=== PATIENT | male | born 1965 | race Caucasian/White ===

== ENCOUNTER 2022-05-01 17:02 | Inpatient (IN) | payer SELFPAY ==
[2022-05-01 17:38] LABS: #Basophils 0.1 thou/uL (0.0-0.2); #Eosinphils 0.1 thou/uL (0.0-0.7); #Lymphocytes 3.4 thou/uL (1.20-3.40); #Monocytes 0.5 thou/uL (0.11-0.59); #Neutrophils 6.1 thou/uL (1.40-6.50); %Basophils 0.7 % (0.0-1.0); %Eosinophils 0.7 % (0.0-10.0); %Lymphocytes 33.5 % (21.0-51.0); %Monocytes 4.6 % (0.0-10.0); %Neutrophils 60.5 % (42.0-75.0); Hemoglobin 15.7 g/dL (14.0-18.0); Mean Corpuscular HGB CONC 33.2 g/dL (32.0-36.0); Mean Corpuscular Hemoglobin 30.9 pg (27.0-31.0); Mean Corpuscular Volume 93.1 fl (78.0-98.0); Mean Platelet Volume 7.1 fL (7.4-10.4); Platelet Count 320 thou/uL (130-400); RBC Distribution Width 11.9 % (11.5-14.5); Red Blood Cell (RBC) Count 5.08 mill/uL (4.70-6.10); White Blood Cell (WBC) Count 10.1 thou/uL (4.8-10.8)
[2022-05-01 17:54] LABS: ALT (SGPT) 11 U/L (8-55); AST (SGOT) 20 U/L (5-34); Albumin 4.5 g/dL (3.5-5.0); Alkaline Phosphatase 61 U/L (40-110); Anion Gap 17 mmol/L (10-20); BUN (Urea Nitrogen) 18 mg/dL (8.4-25.7); Bilirubin, Total 0.7 mg/dL (0.2-1.2); Calc. Creatinine Clearance 0 mL/min (70-130); Calcium 9.6 mg/dL (7.8-10.44); Carbon Dioxide 22 mmol/L (22-29); Chloride 104 mmol/L (98-107); Estimated GFR 82; Globulin 2.9 g/dL (2.4-3.5); Glucose 80 mg/dL (70-105); Potassium 4.3 mmol/L (3.5-5.1); Protein, Total 7.4 g/dL (6.0-8.3); Sodium 139 mmol/L (136-145)
[2022-05-01] MEDS ORDERED: Enoxaparin Sodium 80 MG/0.8 ML SYRINGE ONE (18:11)
[2022-05-01 18:32] LABS: CKMB 7.1 ng/mL (0-6.6)
[2022-05-01] MEDS ORDERED: Acetaminophen 325 MG TAB PO PRN (18:45)
[2022-05-01] MEDS ORDERED: Senokot S 8.6-50 MG TAB PO PRN (18:45)
[2022-05-01] MEDS ORDERED: Nitroglycerin 0.4 MG TAB (25 Tab Bottle) SL PRN (18:49)
[2022-05-01] MEDS ORDERED: Aspirin 325 MG TAB PO SCH (19:00)
[2022-05-01] MEDS ORDERED: Aspirin Chewable 81 MG TAB ONE (19:36)
[2022-05-01 21:09] LABS: Troponin I 2.735 ng/mL (< 0.028)
[2022-05-01 21:25] VITALS: BMI 23.6
[2022-05-01] MEDS: Sodium Chloride 0.9% 1,000 ML IV SCH (21:44)
[2022-05-01] MEDS: Metoprolol Tartrate 25 MG TAB PO SCH (21:44)
[2022-05-01] MEDS: Atorvastatin Calcium 40 MG TAB PO SCH (21:44)
[2022-05-01] MEDS: Famotidine 20 MG TAB PO SCH (21:44)
[2022-05-01 23:58] LABS: Critical Call Chem Troponin I RESULT DECREASING; Troponin I 2.443 ng/mL (< 0.028)
[2022-05-02 05:23] LABS: #Basophils 0.1 thou/uL (0.0-0.2); #Eosinphils 0.2 thou/uL (0.0-0.7); #Lymphocytes 2.6 thou/uL (1.20-3.40); #Monocytes 0.5 thou/uL (0.11-0.59); #Neutrophils 5.2 thou/uL (1.40-6.50); %Basophils 1.2 % (0.0-1.0); %Eosinophils 2.3 % (0.0-10.0); %Lymphocytes 30.2 % (21.0-51.0); %Monocytes 5.3 % (0.0-10.0); Hemoglobin 14.5 g/dL (14.0-18.0); Mean Corpuscular HGB CONC 33.8 g/dL (32.0-36.0); Mean Corpuscular Hemoglobin 31.7 pg (27.0-31.0); Mean Platelet Volume 7.1 fL (7.4-10.4); Platelet Count 269 thou/uL (130-400); RBC Distribution Width 11.8 % (11.5-14.5); Red Blood Cell (RBC) Count 4.57 mill/uL (4.70-6.10); White Blood Cell (WBC) Count 8.6 thou/uL (4.8-10.8)
[2022-05-02 05:36] LABS: ALT (SGPT) 10 U/L (8-55); AST (SGOT) 19 U/L (5-34); Albumin 3.9 g/dL (3.5-5.0); Alkaline Phosphatase 52 U/L (40-110); Anion Gap 12 mmol/L (10-20); BUN (Urea Nitrogen) 20 mg/dL (8.4-25.7); Bilirubin, Total 0.7 mg/dL (0.2-1.2); Calc. Creatinine Clearance 100 mL/min (70-130); Calcium 8.8 mg/dL (7.8-10.44); Carbon Dioxide 24 mmol/L (22-29); Cardiac Risk 4.9 (Less than 4.5); Chloride 107 mmol/L (98-107); Cholesterol 181 mg/dl (< 200 Desired); Estimated GFR 98; Globulin 2.3 g/dL (2.4-3.5); Glucose 96 mg/dL (70-105); HDL Cholesterol 37 mg/dL (>60 Neg Risk); LDL Cholesterol, Calculated 125 mg/dL; Potassium 4.1 mmol/L (3.5-5.1); Protein, Total 6.2 g/dL (6.0-8.3); Sodium 139 mmol/L (136-145); Triglycerides 97 mg/dL (Less than 150)
[2022-05-02] MEDS: Metoprolol Tartrate 25 MG TAB PO SCH ×2 (08:36→20:10)
[2022-05-02] MEDS: Famotidine 20 MG TAB PO SCH ×2 (08:37→20:10)
[2022-05-02] MEDS ORDERED: Aspirin 300 MG Suppository PR SCH (09:00)
[2022-05-02] MEDS ORDERED: Enoxaparin Sodium 80 MG/0.8 ML SYRINGE SC SCH (09:00)
[2022-05-02] MEDS ORDERED: Aspirin 325 MG TAB PO SCH (11:15)
[2022-05-02] MEDS ORDERED: Communication Order-Pharmacy FS SCH ×2 (11:30→17:41)
[2022-05-02] MEDS ORDERED: Sodium Chloride 0.9% 1,000 ML IV SCH ×2 (11:30→13:29)
[2022-05-02] MEDS ORDERED: Lidocaine 1% (PF) 30 ML VIAL ONE (11:51)
[2022-05-02] MEDS ORDERED: Heparin 10,000 UNITS/ 10 ML VIAL ONE (11:51)
[2022-05-02] MEDS ORDERED: Midazolam HCl 2 mg/2 ml Vial ONE (12:35)
[2022-05-02] MEDS ORDERED: Fentanyl 100 MCG/2 ML VIAL ONE (12:35)
[2022-05-02] MEDS ORDERED: Protamine Sulfate 50 MG/5 ML VIAL ONE (13:02)
[2022-05-02] MEDS ORDERED: Nitroglycerin 0.4 MG TAB (25 Tab Bottle) SL PRN (13:28)
[2022-05-02] MEDS ORDERED: Sodium Chloride 0.9% 200 ML IV PRN (13:28)
[2022-05-02] MEDS ORDERED: Acetaminophen/Codeine 30-300mg Tablet PO PRN ×2 (13:28)
[2022-05-02] MEDS: Sodium Chloride 0.9% 1,000 ML IV SCH (14:46)
[2022-05-02] MEDS ORDERED: Nicotine 21 MG PATCH TD SCH (17:45)
[2022-05-02] MEDS: Budesonide 0.5 MG/2 ML NEB NEB SCH (18:44)
[2022-05-02] MEDS: DULoxetine 30 MG CAP PO SCH (20:10)
[2022-05-02] MEDS: Pregabalin 75 MG CAP PO SCH (20:10)
[2022-05-02] MEDS: Cyclobenzaprine 10 MG TAB PO SCH (20:10)
[2022-05-02] MEDS: Atorvastatin Calcium 40 MG TAB PO SCH (20:10)
[2022-05-03] MEDS: Budesonide 0.5 MG/2 ML NEB NEB SCH ×2 (08:12→18:37)
[2022-05-03] MEDS: Metoprolol Tartrate 25 MG TAB PO SCH ×2 (08:56→21:36)
[2022-05-03] MEDS: Pregabalin 75 MG CAP PO SCH ×2 (08:56→21:38)
[2022-05-03] MEDS: DULoxetine 30 MG CAP PO SCH ×2 (08:57→21:38)
[2022-05-03] MEDS: Famotidine 20 MG TAB PO SCH ×2 (08:57→21:38)
[2022-05-03] MEDS ORDERED: Non-Formulary Item 1 EACH (Tiotropium [Spiriva Handihaler] 18 MCG Box) INH SCH (09:00)
[2022-05-03] MEDS ORDERED: Nicotine 21 MG PATCH TD SCH ×2 (09:00→22:00)
[2022-05-03] MEDS ORDERED: Aspirin 325 MG TAB PO SCH (09:00)
[2022-05-03] MEDS: Nitroglycerin 2% Ointment 1 INCH/1 GM Packet TOP SCH ×2 (11:22→17:52)
[2022-05-03] MEDS: Cyclobenzaprine 10 MG TAB PO SCH (21:37)
[2022-05-03] MEDS: Atorvastatin Calcium 40 MG TAB PO SCH (21:37)
[2022-05-04] MEDS: Nitroglycerin 2% Ointment 1 INCH/1 GM Packet TOP SCH ×3 (00:29→07:34)
[2022-05-04] MEDS: Metoprolol Tartrate 25 MG TAB PO SCH (06:04)
[2022-05-04] MEDS ORDERED: Morphine 2 MG/ML VIAL SLOW IVP PRN ×2 (07:40→13:48)
[2022-05-04] MEDS ORDERED: Morphine 4 MG/ML VIAL SLOW IVP PRN (07:44)
[2022-05-04] MEDS: Budesonide 0.5 MG/2 ML NEB NEB SCH ×2 (07:48→18:56)
[2022-05-04] MEDS ORDERED: Albumin 5% 250 ML ONE ×2 (09:27)
[2022-05-04] MEDS ORDERED: Midazolam HCl 5 mg/5 ml Vial ONE (09:27)
[2022-05-04] MEDS ORDERED: fentaNYL PF 100 MCG/2 ML SYRINGE ONE ×2 (09:27→13:16)
[2022-05-04] MEDS ORDERED: Bupivacaine HCl 0.5%/Epinephrine 1:200,000/PF 30 ml Vial ONE (09:28)
[2022-05-04] MEDS ORDERED: Lidocaine 1% MPF 2 ML VIAL ONE (09:41)
[2022-05-04] MEDS ORDERED: Heparin 10,000 UNITS/1 ML VIAL 30,000 UNITS in Sodium Chloride 0.9% 1,000 ML FS SCH (09:45)
[2022-05-04] MEDS ORDERED: Thrombin 5000 UNITS/5 ML VIAL ONE ×2 (09:48→10:25)
[2022-05-04] MEDS ORDERED: Sodium Chloride 0.9% 100 ML ONE (10:14)
[2022-05-04] MEDS ORDERED: CEFAZOLIN 2 GM VIAL ONE (10:14)
[2022-05-04] MEDS ORDERED: Aminocaproic Acid 5 GM/20 ML VIAL ONE (10:25)
[2022-05-04] MEDS ORDERED: Ondansetron PF 4 MG/2 ML Vial ONE ×2 (10:25)
[2022-05-04] MEDS ORDERED: Rocuronium Bromide 10 MG/ML (10ML VIAL) ONE (10:25)
[2022-05-04] MEDS ORDERED: Heparin 5,000 UNITS/ML VIAL ONE (10:25)
[2022-05-04] MEDS ORDERED: Potassium Chloride 60 MEQ/30 ML VIAL ONE (10:25)
[2022-05-04] MEDS ORDERED: Mannitol 12.5 GM/50 ML ONE (10:25)
[2022-05-04] MEDS ORDERED: ePHEDrine 50 MG/ML VIAL ONE (10:25)
[2022-05-04] MEDS ORDERED: Glycopyrrolate 0.2 MG/ML 5 ML SYRINGE ONE (10:25)
[2022-05-04] MEDS ORDERED: PROPOFOL 200 MG/20 ML VIAL ONE (10:25)
[2022-05-04] MEDS ORDERED: Calcium Chloride 1 GM/10 ML Abboject SYRINGE ONE (10:25)
[2022-05-04] MEDS ORDERED: Norepinephrine 4 MG/4 ML VIAL ONE (10:25)
[2022-05-04] MEDS ORDERED: PHENYLEPHRINE-NS 100 MCG/ML 10 ML SYRINGE ONE (10:25)
[2022-05-04] MEDS ORDERED: Cardioplegic Soln 1,000 ML BAG ONE (10:25)
[2022-05-04] MEDS ORDERED: Sodium Bicarb 50 MEQ/50 ML Abboject 8.4% SYRINGE ONE (10:25)
[2022-05-04] MEDS ORDERED: Heparin 30,000 units/30 ml VIAL ONE (10:25)
[2022-05-04] MEDS ORDERED: Lidocaine 2% PF 100 mg/5 ml Syringe ONE (10:25)
[2022-05-04] MEDS ORDERED: Papaverine 60 MG/2 ML VIAL ONE (10:25)
[2022-05-04] MEDS ORDERED: Protamine Sulfate 250 MG/25 ML VIAL ONE (10:25)
[2022-05-04] MEDS ORDERED: Magnesium Sulfate 1 GM/2 ML VIAL ONE (10:25)
[2022-05-04] MEDS ORDERED: Vecuronium 10 MG VIAL ONE (10:25)
[2022-05-04] MEDS ORDERED: CEFAZOLIN 2 GM in Sodium Chloride 0.9% 100 ML IVPB SCH (10:30)
[2022-05-04] MEDS ORDERED: Dexamethasone 4 mg/ml Vial ONE (12:20)
[2022-05-04] MEDS ORDERED: Rocuronium Bromide 50 MG/5 ML VIAL ONE (13:15)
[2022-05-04] MEDS ORDERED: Hetastarch 6% 500 ML 500 ML IVPB PRN (13:48)
[2022-05-04] MEDS ORDERED: hydrALAZINE 20 MG/ML VIAL SLOW IVP PRN (13:48)
[2022-05-04] MEDS ORDERED: FENTANYL 50 MCG/ML 1 ML VIAL SLOW IVP PRN (13:48)
[2022-05-04] MEDS ORDERED: Nitroglycerin 50 MG/250 ML BOT 250 ML IVPB PRN (13:48)
[2022-05-04] MEDS ORDERED: Bisacodyl 5 MG TAB PO PRN (13:48)
[2022-05-04] MEDS ORDERED: Mag-Al 1200 mg/1200 mg/30 ML UDCUP PO PRN (13:48)
[2022-05-04] MEDS ORDERED: Magnesium 2 GM/50 ML(in water) 2 GM in Premix Bag 1 BAG IVPB SCH (13:48)
[2022-05-04] MEDS ORDERED: NOREPINEPHRINE 8 MG/250 ML-D5W 250 ML IVPB PRN (13:48)
[2022-05-04] MEDS ORDERED: Ondansetron PF 4 MG/2 ML Vial IVP PRN (13:48)
[2022-05-04] MEDS ORDERED: Potassium Chloride 20 MEQ/100 ML PREMIX BAG IVPB PRN (13:48)
[2022-05-04] MEDS ORDERED: Bisacodyl 10 MG SUPP PR PRN (13:48)
[2022-05-04] MEDS ORDERED: Guaifenesin DM 100-10/5 ML UDCUP PO PRN (13:48)
[2022-05-04] MEDS ORDERED: Promethazine HCl 25 MG/ML VIAL IM PRN (13:48)
[2022-05-04] MEDS ORDERED: Dextrose 50% Abboject 50 ML SYRINGE SLOW IVP PRN (14:00)
[2022-05-04] MEDS ORDERED: HUMULIN R 100 UNITS in Sodium Chloride 0.9% 100 ML IVPB SCH (14:00)
[2022-05-04] MEDS ORDERED: Dextrose 5% in Water 1,000 ML IV PRN (14:00)
[2022-05-04 14:02] LABS: #Eosinphils 0.2 thou/uL (0.0-0.7); #Lymphocytes 2.2 thou/uL (1.20-3.40); #Monocytes 0.3 thou/uL (0.11-0.59); #Neutrophils 7.7 thou/uL (1.40-6.50); %Basophils 0.3 % (0.0-1.0); %Eosinophils 2.2 % (0.0-10.0); %Lymphocytes 21.4 % (21.0-51.0); %Monocytes 2.4 % (0.0-10.0); %Neutrophils 73.8 % (42.0-75.0); Hemoglobin 11.2 g/dL (14.0-18.0); Mean Corpuscular HGB CONC 33.6 g/dL (32.0-36.0); Mean Corpuscular Hemoglobin 31.6 pg (27.0-31.0); Mean Corpuscular Volume 94.3 fl (78.0-98.0); Mean Platelet Volume 6.9 fL (7.4-10.4); Platelet Count 174 thou/uL (130-400); RBC Distribution Width 11.7 % (11.5-14.5); Red Blood Cell (RBC) Count 3.55 mill/uL (4.70-6.10); White Blood Cell (WBC) Count 10.4 thou/uL (4.8-10.8)
[2022-05-04 14:04] LABS: Actual Bicarbonate (HCO3a) 21.6 mEq/L (22-28); Base Excess (BEa) -4.1 mEq/L (-2.0 to +3.0); CO2 Tension 42.1 mmHg (35.0-45.0); Calcium, Ionized (arterial) 1.22 mmol/L (1.12-1.30); Carboxyhemoglobin (COHb) 0.2 gm% (0.0-3.0); Hemoglobin (Hb) 11.8 g/dL (14.0-18.0); O2 Tension (PaO2), arterial 95.6 mmHg (80.0-100.0); Potassium - ABG Lab 3.76 mmol/L (3.70-5.30); Puncture Site Arterial Line; pH, Arterial 7.33 (7.35-7.45)
[2022-05-04 14:05] LABS: ALV-art Gradient 208.275 mmHg (0-20)
[2022-05-04 14:09] LABS: INR-International Normal Ratio 1.2; PTT 32.8 sec (22.9-36.1); Prothrombin Time 15.7 sec (12.0-14.7)
[2022-05-04] MEDS: FENTANYL 50 MCG/ML 1 ML VIAL SLOW IVP PRN ×2 (14:10→15:19)
[2022-05-04] MEDS: Insulin Regular 300 UNITS/3 ML VIAL SC PRN ×2 (14:11→21:10)
[2022-05-04] MEDS: D5 1/2 NS w/20 mEq KCL 1,000 ML IV SCH (14:18)
[2022-05-04] MEDS ORDERED: Morphine 4 MG/ML VIAL ONE (14:35)
[2022-05-04] MEDS: Morphine 4 MG/ML VIAL SLOW IVP PRN (14:40)
[2022-05-04 14:44] LABS: Anion Gap 10 mmol/L (10-20); BUN (Urea Nitrogen) 15 mg/dL (8.4-25.7); Calc. Creatinine Clearance 106 mL/min (70-130); Calcium 8.6 mg/dL (7.8-10.44); Carbon Dioxide 21 mmol/L (22-29); Chloride 111 mmol/L (98-107); Estimated GFR 101; Glucose 161 mg/dL (70-105); Sodium 138 mmol/L (136-145)
[2022-05-04] MEDS: traMADol HCl 50 MG TAB PO PRN (17:03)
[2022-05-04] MEDS: CEFAZOLIN 2 GM in Sodium Chloride 0.9% 100 ML IVPB SCH (17:10)
[2022-05-04] MEDS: Ketorolac Tromethamine 30 MG/ML VIAL IVP SCH ×2 (17:13→23:32)
[2022-05-04 19:44] LABS: Hemoglobin 11.8 g/dL (14.0-18.0)
[2022-05-04 19:51] LABS: Potassium 4.5 mmol/L (3.5-5.1)
[2022-05-04] MEDS: Famotidine/PF 20 mg/2ml Vial SLOW IVP SCH (21:09)
[2022-05-04] MEDS: Atorvastatin Calcium 40 MG TAB PO SCH (21:09)
[2022-05-04] MEDS: Acetaminophen 325 MG TAB PO PRN (21:14)
[2022-05-05] MEDS: CEFAZOLIN 2 GM in Sodium Chloride 0.9% 100 ML IVPB SCH ×2 (02:07→10:22)
[2022-05-05] MEDS: Insulin Regular 300 UNITS/3 ML VIAL SC PRN (02:16)
[2022-05-05 04:06] LABS: #Lymphocytes 1.4 thou/uL (1.20-3.40); #Monocytes 0.7 thou/uL (0.11-0.59); #Neutrophils 8.4 thou/uL (1.40-6.50); %Basophils 0.3 % (0.0-1.0); %Eosinophils 0.2 % (0.0-10.0); %Lymphocytes 13.6 % (21.0-51.0); %Monocytes 6.6 % (0.0-10.0); %Neutrophils 79.3 % (42.0-75.0); Mean Corpuscular HGB CONC 32.4 g/dL (32.0-36.0); Mean Corpuscular Hemoglobin 30.5 pg (27.0-31.0); Mean Corpuscular Volume 94.2 fl (78.0-98.0); Mean Platelet Volume 7.6 fL (7.4-10.4); Platelet Count 200 thou/uL (130-400); RBC Distribution Width 11.6 % (11.5-14.5); Red Blood Cell (RBC) Count 3.61 mill/uL (4.70-6.10); White Blood Cell (WBC) Count 10.6 thou/uL (4.8-10.8)
[2022-05-05 04:28] LABS: Anion Gap 9 mmol/L (10-20); BUN (Urea Nitrogen) 12 mg/dL (8.4-25.7); Calc. Creatinine Clearance 105 mL/min (70-130); Calcium 8.7 mg/dL (7.8-10.44); Carbon Dioxide 23 mmol/L (22-29); Chloride 108 mmol/L (98-107); Estimated GFR 101; Glucose 111 mg/dL (70-105); Potassium 4.2 mmol/L (3.5-5.1); Sodium 136 mmol/L (136-145)
[2022-05-05] MEDS: Ketorolac Tromethamine 30 MG/ML VIAL IVP SCH ×4 (05:55→23:44)
[2022-05-05] MEDS: traMADol HCl 50 MG TAB PO PRN ×3 (06:22→17:21)
[2022-05-05] MEDS: Budesonide 0.5 MG/2 ML NEB NEB SCH ×2 (07:02→18:14)
[2022-05-05] MEDS: Famotidine/PF 20 mg/2ml Vial SLOW IVP SCH ×2 (08:29→20:48)
[2022-05-05] MEDS ORDERED: Magnesium 2 GM/50 ML(in water) 2 GM in Premix Bag 1 BAG IVPB SCH (09:00)
[2022-05-05] MEDS ORDERED: Aspirin 325 MG TAB PO SCH (09:00)
[2022-05-05] MEDS ORDERED: Insulin Glargine 30 UNITS/0.3 ML VIAL SC PRN (13:57)
[2022-05-05] MEDS: Morphine 4 MG/ML VIAL SLOW IVP PRN (16:19)
[2022-05-05] MEDS: D5 1/2 NS w/20 mEq KCL 1,000 ML IV SCH (16:41)
[2022-05-05] MEDS: Atorvastatin Calcium 40 MG TAB PO SCH (20:45)
[2022-05-05] MEDS: Acetaminophen 325 MG TAB PO PRN (20:46)
[2022-05-05] MEDS ORDERED: Mag-Al 1200 mg/1200 mg/30 ML UDCUP PO PRN (20:51)
[2022-05-05] MEDS ORDERED: diphenhydrAMINE 25 MG CAP PO PRN (20:51)
[2022-05-05] MEDS ORDERED: Bisacodyl 5 MG TAB PO PRN (20:51)
[2022-05-05] MEDS ORDERED: Zolpidem Tartrate 5 MG TAB PO PRN (20:51)
[2022-05-05] MEDS ORDERED: Nitroglycerin 0.4 MG TAB (25 Tab Bottle) SL PRN (20:51)
[2022-05-05] MEDS ORDERED: Mineral Oil ENEMA PR PRN (20:51)
[2022-05-05] MEDS ORDERED: Milk Of Magnesia 30 ML UDCUP PO PRN (20:51)
[2022-05-05] MEDS ORDERED: Bisacodyl 10 MG SUPP PR PRN (20:51)
[2022-05-05] MEDS ORDERED: Guaifenesin DM 100-10/5 ML UDCUP PO PRN (20:51)
[2022-05-05] MEDS ORDERED: FENTANYL 50 MCG/ML 1 ML VIAL SLOW IVP PRN ×2 (21:09→21:10)
[2022-05-05] MEDS ORDERED: Furosemide 40 MG TAB PO SCH (21:15)
[2022-05-05] MEDS ORDERED: Potassium Chloride 10 MEQ TAB PO SCH (21:15)
[2022-05-05] MEDS: Famotidine 20 MG TAB PO SCH (21:50)
[2022-05-06] MEDS: Ketorolac Tromethamine 30 MG/ML VIAL IVP SCH ×4 (06:25→23:59)
[2022-05-06] MEDS: Budesonide 0.5 MG/2 ML NEB NEB SCH ×2 (07:11→19:56)
[2022-05-06] MEDS ORDERED: Potassium Chloride 10 MEQ TAB PO SCH (08:00)
[2022-05-06] MEDS ORDERED: Furosemide 40 MG TAB PO SCH (09:00)
[2022-05-06] MEDS: Aspirin 81 mg Enteric Coated Tablet PO SCH (10:01)
[2022-05-06] MEDS: Clopidogrel Bisulfate 75 MG TAB PO SCH (10:01)
[2022-05-06] MEDS: Famotidine 20 MG TAB PO SCH ×2 (10:02→20:31)
[2022-05-06] MEDS: traMADol HCl 50 MG TAB PO PRN (18:14)
[2022-05-06] MEDS: Atorvastatin Calcium 40 MG TAB PO SCH (20:31)
[2022-05-07] MEDS: traMADol HCl 50 MG TAB PO PRN ×2 (06:04)
[2022-05-07] MEDS: Ketorolac Tromethamine 30 MG/ML VIAL IVP SCH (06:52)
[2022-05-07] MEDS: Budesonide 0.5 MG/2 ML NEB NEB SCH (08:01)
[2022-05-07 08:26] VITALS: BP 107/85; TEMP 98.7
[2022-05-07] MEDS: Clopidogrel Bisulfate 75 MG TAB PO SCH (08:45)
[2022-05-07] MEDS: Aspirin 81 mg Enteric Coated Tablet PO SCH (08:45)
[2022-05-07] MEDS: Famotidine 20 MG TAB PO SCH (08:45)
== END 2022-05-07 09:13 | disposition home or self-care (01) | DRG 234 ==
LOC: ERS 17:02 → 2SW 18:50 → CCU 05-04 09:16 → 2NO 05-05 22:11
PROVIDERS: ADMIT Thoracic Surgery (Cardiothoracic Vascular Surgery); ATTEND Hospitalist
PROC: 4A023N7 Measurement of Cardiac Sampling and Pressure, Left Heart, Percutaneous Approach (ICD-10-PCS; 2022-05-02)
PROC: B2111ZZ Fluoroscopy of Multiple Coronary Arteries using Low Osmolar Contrast (ICD-10-PCS; 2022-05-02)
PROC: B2151ZZ Fluoroscopy of Left Heart using Low Osmolar Contrast (ICD-10-PCS; 2022-05-02)
PROC: 021109W Bypass Coronary Artery, Two Arteries from Aorta with Autologous Venous Tissue, Open Approach (ICD-10-PCS; principal; 2022-05-04)
PROC: 02100Z9 Bypass Coronary Artery, One Artery from Left Internal Mammary, Open Approach (ICD-10-PCS; 2022-05-04)
PROC: 06BQ4ZZ Excision of Left Saphenous Vein, Percutaneous Endoscopic Approach (ICD-10-PCS; 2022-05-04)
PROC: 02L70DK Occlusion of Left Atrial Appendage with Intraluminal Device, Open Approach (ICD-10-PCS; 2022-05-04)
PROC: 5A1221Z Performance of Cardiac Output, Continuous (ICD-10-PCS; 2022-05-04)
DX: I21.4 Non-ST elevation (NSTEMI) myocardial infarction (principal); Z20.822 Contact with and (suspected) exposure to COVID-19; F17.210 Nicotine dependence, cigarettes, uncomplicated; I10 Essential (primary) hypertension; I25.10 Atherosclerotic heart disease of native coronary artery without angina pectoris; F12.10 Cannabis abuse, uncomplicated; E78.00 Pure hypercholesterolemia, unspecified; B19.20 Unspecified viral hepatitis C without hepatic coma; J44.9 Chronic obstructive pulmonary disease, unspecified; Z82.49 Family history of ischemic heart disease and other diseases of the circulatory system; Z79.82 Long term (current) use of aspirin; Z78.1 Physical restraint status
CPT/HCPCS: 36415; 36416; 71045; 80048; 80053; 80061; 82553; 82805; 83880; 84484; 85025; 85347; 85610; 85652; 85730; 86140; 86850; 86900; 86901; 93005; 93010; 93306; 93458; 93798; 94002; 94150; 94640; 96372; 97139; 99152; C1751; C1769; C1776; J1100; J1642; J1644; J1650; J1815; J1885; J2001; J2150; J2250; J2270; J2405; J2440; J2704; J2720; J3010; J3370; J3475; J3480; J3490; J7050; J7620; J7626; P9045; S0017; S0028; U0003; U0005

== ENCOUNTER 2022-08-15 11:15 | Inpatient (IN) | payer SELFPAY ==
[~2022-08-15 11:15] MED LIST: Iopamidol-370 76% 500 ML 1 ML ONE
[2022-08-15] MEDS ORDERED: Ketorolac Tromethamine 30 MG/ML VIAL ONE (12:23)
[2022-08-15] MEDS ORDERED: HYDROcodone/Acetaminophen 10/325 mg Tablet ONE (12:23)
[2022-08-15] MEDS ORDERED: LORazepam 2 MG/ML SYR.(CARPUJECT) ONE (12:23)
[2022-08-15 12:39] LABS: #Eosinphils 0.1 thou/uL (0.0-0.7); #Lymphocytes 2.2 thou/uL (1.20-3.40); #Neutrophils 7.9 thou/uL (1.40-6.50); %Basophils 0.1 % (0.0-1.0); %Eosinophils 0.5 % (0.0-10.0); %Lymphocytes 19.9 % (21.0-51.0); %Monocytes 9.3 % (0.0-10.0); %Neutrophils 70.3 % (42.0-75.0); Hemoglobin 14.1 g/dL (14.0-18.0); Mean Corpuscular HGB CONC 32.8 g/dL (32.0-36.0); Mean Corpuscular Hemoglobin 29.4 pg (27.0-31.0); Mean Corpuscular Volume 89.6 fl (78.0-98.0); Mean Platelet Volume 7.6 fL (7.4-10.4); Platelet Count 267 10x3/uL (130-400); RBC Distribution Width 13.7 % (11.5-14.5); Red Blood Cell (RBC) Count 4.78 mill/uL (4.70-6.10); White Blood Cell (WBC) Count 11.2 10x3/uL (4.8-10.8)
[2022-08-15 12:41] LABS: ALT (SGPT) 12 U/L (8-55); AST (SGOT) 11 U/L (5-34); Alkaline Phosphatase 64 U/L (40-110); Anion Gap 14 mmol/L (10-20); BUN (Urea Nitrogen) 15 mg/dL (8.4-25.7); Bilirubin, Total 0.4 mg/dL (0.2-1.2); Calc. Creatinine Clearance 0 mL/min (70-130); Calcium 9.8 mg/dL (7.8-10.44); Carbon Dioxide 24 mmol/L (22-29); Chloride 104 mmol/L (98-107); Estimated GFR 92; Globulin 3.4 g/dL (2.4-3.5); Glucose 147 mg/dL (70-105); Potassium 4.3 mmol/L (3.5-5.1); Protein, Total 7.4 g/dL (6.0-8.3); Sodium 138 mmol/L (136-145)
[2022-08-15] MEDS ORDERED: Dexameth. Sod Phosp. 10 MG/ML (CHEMO USE ONLY) ONE (15:47)
[2022-08-15] MEDS ORDERED: CEFAZOLIN 2 GM VIAL ONE (16:16)
[2022-08-15] MEDS ORDERED: Gentamicin 80 MG/2 ML VIAL ONE (16:16)
[2022-08-15] MEDS ORDERED: cefTRIAXone\\ROCEPHIN 1 GM VIAL ONE (16:18)
[2022-08-15] MEDS ORDERED: Ondansetron PF 4 MG/2 ML Vial IVP PRN (16:38)
[2022-08-15] MEDS ORDERED: Morphine 2 MG/ML VIAL SLOW IVP PRN (17:11)
[2022-08-15] MEDS ORDERED: Piperacillin/Tazobactam 3.375 GM in Sodium Chloride 0.9% 100 ML IVPB SCH ×2 (18:00→23:00)
[2022-08-15] MEDS ORDERED: Ampicillin/Sulbactam 3 GM in Sodium Chloride 0.9% 100 ML IVPB SCH (18:00)
[2022-08-15 18:52] VITALS: BMI 24.0
[2022-08-15] MEDS: Morphine 4 MG/ML VIAL SLOW IVP PRN ×2 (18:56→23:14)
[2022-08-15] MEDS: Ipratropium Bromide 2.5 ml Neb NEB SCH (19:29)
[2022-08-15] MEDS: Atorvastatin Calcium 40 MG TAB PO SCH (21:41)
[2022-08-15] MEDS: Pregabalin 75 MG CAP PO SCH (21:41)
[2022-08-15] MEDS: Ketorolac Tromethamine 30 MG/ML VIAL IVP SCH (21:42)
[2022-08-15] MEDS: DULoxetine 30 MG CAP PO SCH (21:42)
[2022-08-15] MEDS ORDERED: diphenhydrAMINE 25 MG CAP PO SCH (21:45)
[2022-08-15] MEDS: Piperacillin/Tazobactam 3.375 GM in Sodium Chloride 0.9% 100 ML IVPB SCH (23:18)
[2022-08-16] MEDS: Ipratropium Bromide 2.5 ml Neb NEB SCH ×4 (00:49→19:02)
[2022-08-16] MEDS: Morphine 4 MG/ML VIAL SLOW IVP PRN ×5 (03:16→18:13)
[2022-08-16 06:32] LABS: #Lymphocytes 1.3 thou/uL (1.20-3.40); #Monocytes 0.4 thou/uL (0.11-0.59); #Neutrophils 8.3 thou/uL (1.40-6.50); %Basophils 0.1 % (0.0-1.0); %Eosinophils 0.1 % (0.0-10.0); %Lymphocytes 12.9 % (21.0-51.0); %Monocytes 4.3 % (0.0-10.0); %Neutrophils 82.6 % (42.0-75.0); Hemoglobin 12.8 g/dL (14.0-18.0); Mean Corpuscular HGB CONC 33.8 g/dL (32.0-36.0); Mean Corpuscular Hemoglobin 30.4 pg (27.0-31.0); Mean Corpuscular Volume 90.1 fl (78.0-98.0); Mean Platelet Volume 7.7 fL (7.4-10.4); Platelet Count 232 10x3/uL (130-400); RBC Distribution Width 13.4 % (11.5-14.5); Red Blood Cell (RBC) Count 4.22 mill/uL (4.70-6.10); White Blood Cell (WBC) Count 10.1 10x3/uL (4.8-10.8)
[2022-08-16 06:55] LABS: Anion Gap 12 mmol/L (10-20); BUN (Urea Nitrogen) 15 mg/dL (8.4-25.7); Calc. Creatinine Clearance 114 mL/min (70-130); Calcium 9.4 mg/dL (7.8-10.44); Carbon Dioxide 26 mmol/L (22-29); Chloride 105 mmol/L (98-107); Estimated GFR 104; Glucose 128 mg/dL (70-105); Potassium 4.6 mmol/L (3.5-5.1); Sodium 138 mmol/L (136-145)
[2022-08-16] MEDS: Piperacillin/Tazobactam 3.375 GM in Sodium Chloride 0.9% 100 ML IVPB SCH ×3 (08:25→23:44)
[2022-08-16] MEDS ORDERED: Iopamidol-370 76% 500 ML 1 ML ONE (09:52)
[2022-08-16] MEDS: Sodium Chloride 0.9% 1,000 ML IV SCH (11:39)
[2022-08-16] MEDS: DULoxetine 30 MG CAP PO SCH ×2 (15:31→21:58)
[2022-08-16] MEDS: Pregabalin 75 MG CAP PO SCH ×2 (15:34→21:57)
[2022-08-16] MEDS ORDERED: Cyclobenzaprine 10 MG TAB PO SCH (18:15)
[2022-08-16] MEDS: Atorvastatin Calcium 40 MG TAB PO SCH (21:58)
[2022-08-16] MEDS: HYDROcodone/Acetaminophen 5/325 mg Tablet PO PRN (21:59)
[2022-08-16] MEDS: Cyclobenzaprine 10 MG TAB PO PRN (22:00)
[2022-08-16] MEDS: Ketorolac Tromethamine 30 MG/ML VIAL IVP SCH (23:43)
[2022-08-17] MEDS: Ipratropium Bromide 2.5 ml Neb NEB SCH ×5 (00:07→23:58)
[2022-08-17] MEDS: Sodium Chloride 0.9% 1,000 ML IV SCH ×2 (01:44→11:21)
[2022-08-17 06:37] LABS: #Eosinphils 0.1 thou/uL (0.0-0.7); #Lymphocytes 1.6 thou/uL (1.20-3.40); #Neutrophils 7.7 thou/uL (1.40-6.50); %Basophils 0.2 % (0.0-1.0); %Eosinophils 0.5 % (0.0-10.0); %Lymphocytes 15.6 % (21.0-51.0); %Monocytes 9.2 % (0.0-10.0); %Neutrophils 74.6 % (42.0-75.0); Hemoglobin 14.7 g/dL (14.0-18.0); Mean Corpuscular HGB CONC 32.3 g/dL (32.0-36.0); Mean Corpuscular Hemoglobin 29.5 pg (27.0-31.0); Mean Corpuscular Volume 91.5 fl (78.0-98.0); Mean Platelet Volume 8.5 fL (7.4-10.4); Platelet Count 212 10x3/uL (130-400); RBC Distribution Width 13.8 % (11.5-14.5); Red Blood Cell (RBC) Count 4.99 mill/uL (4.70-6.10); White Blood Cell (WBC) Count 10.3 10x3/uL (4.8-10.8)
[2022-08-17 06:51] LABS: Anion Gap 16 mmol/L (10-20); BUN (Urea Nitrogen) 15 mg/dL (8.4-25.7); Calc. Creatinine Clearance 115 mL/min (70-130); Calcium 9.3 mg/dL (7.8-10.44); Carbon Dioxide 19 mmol/L (22-29); Chloride 102 mmol/L (98-107); Estimated GFR 104; Glucose 92 mg/dL (70-105); Potassium 3.9 mmol/L (3.5-5.1); Sodium 133 mmol/L (136-145)
[2022-08-17] MEDS ORDERED: Magnevist 469MG/ML 20 ML VIAL ONE (09:17)
[2022-08-17] MEDS: Pregabalin 75 MG CAP PO SCH ×2 (09:35→22:13)
[2022-08-17] MEDS: DULoxetine 30 MG CAP PO SCH ×2 (09:35→22:14)
[2022-08-17] MEDS: Piperacillin/Tazobactam 3.375 GM in Sodium Chloride 0.9% 100 ML IVPB SCH ×2 (09:35→15:13)
[2022-08-17] MEDS: HYDROcodone/Acetaminophen 5/325 mg Tablet PO PRN ×3 (11:37→22:14)
[2022-08-17] MEDS ORDERED: Vancomycin 1.5 GRAM/300 ML BAG 1.5 GM in Premix Bag 1 BAG IVPB SCH (16:00)
[2022-08-17] MEDS: Cyclobenzaprine 10 MG TAB PO PRN (18:13)
[2022-08-17] MEDS ORDERED: Vancomycin HCl 1.25 GM in Sodium Chloride 0.9% 250 ML 250 ML IVPB SCH (21:00)
[2022-08-17] MEDS: Atorvastatin Calcium 40 MG TAB PO SCH (22:13)
[2022-08-17] MEDS: Ketorolac Tromethamine 30 MG/ML VIAL IVP SCH (23:55)
[2022-08-18] MEDS: Piperacillin/Tazobactam 3.375 GM in Sodium Chloride 0.9% 100 ML IVPB SCH ×4 (01:02→23:19)
[2022-08-18] MEDS: Sodium Chloride 0.9% 1,000 ML IV SCH ×3 (01:34→20:25)
[2022-08-18] MEDS: VANCOMYCIN 1.25 GM/250 ML BAG 1.25 GM in Premix Bag 1 BAG IVPB SCH ×2 (04:40→16:19)
[2022-08-18 06:33] LABS: #Eosinphils 0.1 thou/uL (0.0-0.7); #Lymphocytes 1.2 thou/uL (1.20-3.40); #Monocytes 0.5 thou/uL (0.11-0.59); #Neutrophils 4.4 thou/uL (1.40-6.50); %Basophils 0.3 % (0.0-1.0); %Eosinophils 1.4 % (0.0-10.0); %Lymphocytes 19.1 % (21.0-51.0); %Monocytes 8.5 % (0.0-10.0); %Neutrophils 70.7 % (42.0-75.0); Hemoglobin 12.7 g/dL (14.0-18.0); Mean Corpuscular HGB CONC 33.6 g/dL (32.0-36.0); Mean Corpuscular Hemoglobin 29.7 pg (27.0-31.0); Mean Corpuscular Volume 88.3 fl (78.0-98.0); Mean Platelet Volume 7.1 fL (7.4-10.4); Platelet Count 250 10x3/uL (130-400); RBC Distribution Width 13.4 % (11.5-14.5); Red Blood Cell (RBC) Count 4.28 mill/uL (4.70-6.10); White Blood Cell (WBC) Count 6.2 10x3/uL (4.8-10.8)
[2022-08-18] MEDS: Ipratropium Bromide 2.5 ml Neb NEB SCH ×3 (06:43→18:29)
[2022-08-18 06:55] LABS: Anion Gap 13 mmol/L (10-20); BUN (Urea Nitrogen) 13 mg/dL (8.4-25.7); Calc. Creatinine Clearance 130 mL/min (70-130); Calcium 8.7 mg/dL (7.8-10.44); Carbon Dioxide 23 mmol/L (22-29); Chloride 103 mmol/L (98-107); Estimated GFR 108; Glucose 111 mg/dL (70-105); Potassium 3.4 mmol/L (3.5-5.1); Sodium 136 mmol/L (136-145)
[2022-08-18] MEDS: Acetaminophen 325 MG TAB PO PRN (08:31)
[2022-08-18] MEDS: Pregabalin 75 MG CAP PO SCH ×2 (08:31→20:19)
[2022-08-18] MEDS: DULoxetine 30 MG CAP PO SCH ×2 (08:31→20:19)
[2022-08-18] MEDS ORDERED: Lidocaine 1% (PF) 30 ML VIAL ONE (14:03)
[2022-08-18] MEDS ORDERED: EPINEPHrine 1 MG/ML AMP ONE (14:03)
[2022-08-18] MEDS ORDERED: Fentanyl 250 MCG/5 ML VIAL ONE ×2 (14:21→15:00)
[2022-08-18] MEDS ORDERED: Ketamine 50 MG/ML (10ML VIAL) ONE (14:21)
[2022-08-18] MEDS ORDERED: SUGAMMADEX SODIUM 200 MG/2 ML VIAL ONE (14:21)
[2022-08-18] MEDS ORDERED: Midazolam HCl 2 mg/2 ml Vial ONE (14:21)
[2022-08-18] MEDS ORDERED: Dexmedetomidine 200 MCG/2 ML VIAL ONE (15:00)
[2022-08-18] MEDS ORDERED: PROPOFOL 200 MG/20 ML VIAL ONE (15:29)
[2022-08-18] MEDS ORDERED: Succinylcholine Chloride 100 MG/5 ML SYRINGE FS ONE (15:29)
[2022-08-18] MEDS ORDERED: ePHEDrine 50 MG/ML VIAL ONE (15:29)
[2022-08-18] MEDS ORDERED: Dexamethasone 20 MG/5 ML VIAL ONE (15:29)
[2022-08-18] MEDS ORDERED: PHENYLEPHRINE-NS 100 MCG/ML 10 ML SYRINGE ONE (15:29)
[2022-08-18] MEDS ORDERED: Lidocaine 1% PF 5 ML VIAL ONE (15:29)
[2022-08-18] MEDS ORDERED: Ondansetron PF 4 MG/2 ML Vial ONE (15:29)
[2022-08-18] MEDS ORDERED: Ondansetron HCl/PF 4 MG/2 ML Vial IVP PRN (16:39)
[2022-08-18] MEDS ORDERED: Promethazine HCl 25 MG/ML VIAL IM PRN (16:39)
[2022-08-18] MEDS: Atorvastatin Calcium 40 MG TAB PO SCH (20:19)
[2022-08-18] MEDS: Ketorolac Tromethamine 30 MG/ML VIAL IVP SCH (20:20)
[2022-08-19] MEDS: Ipratropium Bromide 2.5 ml Neb NEB SCH ×2 (02:31→07:25)
[2022-08-19 04:05] LABS: #Lymphocytes 1.2 thou/uL (1.20-3.40); #Monocytes 0.6 thou/uL (0.11-0.59); %Basophils 0.1 % (0.0-1.0); %Eosinophils 0.1 % (0.0-10.0); %Lymphocytes 17.8 % (21.0-51.0); %Neutrophils 74.1 % (42.0-75.0); Hemoglobin 12.6 g/dL (14.0-18.0); Mean Corpuscular HGB CONC 33.6 g/dL (32.0-36.0); Mean Corpuscular Hemoglobin 30.1 pg (27.0-31.0); Mean Corpuscular Volume 89.4 fl (78.0-98.0); Mean Platelet Volume 7.1 fL (7.4-10.4); Platelet Count 292 10x3/uL (130-400); RBC Distribution Width 13.5 % (11.5-14.5); Red Blood Cell (RBC) Count 4.18 mill/uL (4.70-6.10); White Blood Cell (WBC) Count 6.8 10x3/uL (4.8-10.8)
[2022-08-19 04:28] LABS: Anion Gap 14 mmol/L (10-20); BUN (Urea Nitrogen) 15 mg/dL (8.4-25.7); Calc. Creatinine Clearance 103 mL/min (70-130); Calcium 9.1 mg/dL (7.8-10.44); Carbon Dioxide 24 mmol/L (22-29); Chloride 103 mmol/L (98-107); Estimated GFR 101; Glucose 138 mg/dL (70-105); Potassium 3.9 mmol/L (3.5-5.1); Sodium 137 mmol/L (136-145)
[2022-08-19] MEDS: VANCOMYCIN 1.25 GM/250 ML BAG 1.25 GM in Premix Bag 1 BAG IVPB SCH (04:51)
[2022-08-19] MEDS: Piperacillin/Tazobactam 3.375 GM in Sodium Chloride 0.9% 100 ML IVPB SCH (08:06)
[2022-08-19] MEDS: Pregabalin 75 MG CAP PO SCH ×2 (08:08→19:49)
[2022-08-19] MEDS: DULoxetine 30 MG CAP PO SCH ×2 (08:08→19:50)
[2022-08-19] MEDS: Acetaminophen 325 MG TAB PO PRN (08:12)
[2022-08-19] MEDS: CEFAZOLIN 2 GM in Sodium Chloride 0.9% 100 ML IVPB SCH ×2 (16:21→22:41)
[2022-08-19] MEDS: HYDROcodone/Acetaminophen 5/325 mg Tablet PO PRN ×2 (16:25→19:49)
[2022-08-19] MEDS: Cyclobenzaprine 10 MG TAB PO PRN (19:50)
[2022-08-19] MEDS: Atorvastatin Calcium 40 MG TAB PO SCH (19:50)
[2022-08-19] MEDS: Ketorolac Tromethamine 30 MG/ML VIAL IVP SCH (21:52)
[2022-08-19] MEDS: Morphine 4 MG/ML VIAL SLOW IVP PRN (22:41)
[2022-08-20] MEDS: HYDROcodone/Acetaminophen 5/325 mg Tablet PO PRN ×4 (00:48→23:04)
[2022-08-20] MEDS: Morphine 4 MG/ML VIAL SLOW IVP PRN ×3 (01:21→16:07)
[2022-08-20] MEDS ORDERED: Acetaminophen 500 MG TAB PO PRN (01:41)
[2022-08-20 07:22] LABS: #Eosinphils 0.3 thou/uL (0.0-0.7); #Lymphocytes 2.5 thou/uL (1.20-3.40); #Monocytes 0.8 thou/uL (0.11-0.59); #Neutrophils 4.7 thou/uL (1.40-6.50); %Basophils 0.3 % (0.0-1.0); %Eosinophils 3.2 % (0.0-10.0); %Monocytes 9.7 % (0.0-10.0); %Neutrophils 56.8 % (42.0-75.0); Hemoglobin 12.7 g/dL (14.0-18.0); Mean Corpuscular HGB CONC 32.6 g/dL (32.0-36.0); Mean Corpuscular Hemoglobin 29.5 pg (27.0-31.0); Mean Corpuscular Volume 90.3 fl (78.0-98.0); Platelet Count 317 10x3/uL (130-400); RBC Distribution Width 13.7 % (11.5-14.5); Red Blood Cell (RBC) Count 4.32 mill/uL (4.70-6.10); White Blood Cell (WBC) Count 8.3 10x3/uL (4.8-10.8)
[2022-08-20 07:44] LABS: Anion Gap 12 mmol/L (10-20); BUN (Urea Nitrogen) 8 mg/dL (8.4-25.7); Calc. Creatinine Clearance 117 mL/min (70-130); Carbon Dioxide 27 mmol/L (22-29); Chloride 103 mmol/L (98-107); Estimated GFR 104; Glucose 86 mg/dL (70-105); Potassium 3.4 mmol/L (3.5-5.1); Sodium 139 mmol/L (136-145)
[2022-08-20] MEDS: Pregabalin 75 MG CAP PO SCH (08:58)
[2022-08-20] MEDS ORDERED: Pregabalin 75 MG CAP PO SCH (08:58)
[2022-08-20] MEDS: DULoxetine 30 MG CAP PO SCH ×2 (08:58→21:09)
[2022-08-20] MEDS: CEFAZOLIN 2 GM in Sodium Chloride 0.9% 100 ML IVPB SCH (08:59)
[2022-08-20] MEDS ORDERED: Gabapentin 100 MG CAP PO SCH (09:00)
[2022-08-20] MEDS ORDERED: Pregabalin 50 MG CAP PO SCH ×2 (09:15)
[2022-08-20] MEDS: cefTRIAXone\\ROCEPHIN 2 GM in Sodium Chloride 0.9% 100 ML IVPB SCH (14:59)
[2022-08-20] MEDS: Atorvastatin Calcium 40 MG TAB PO SCH (21:09)
[2022-08-20] MEDS: Pregabalin 50 MG CAP PO SCH (21:09)
[2022-08-20] MEDS: Cyclobenzaprine 10 MG TAB PO PRN (21:14)
[2022-08-20] MEDS: Ketorolac Tromethamine 30 MG/ML VIAL IVP SCH (22:02)
[2022-08-21] MEDS: HYDROcodone/Acetaminophen 5/325 mg Tablet PO PRN ×2 (05:04→20:35)
[2022-08-21] MEDS: Pregabalin 50 MG CAP PO SCH ×2 (08:36→20:34)
[2022-08-21] MEDS: DULoxetine 30 MG CAP PO SCH ×2 (08:36→20:34)
[2022-08-21] MEDS: Morphine 4 MG/ML VIAL SLOW IVP PRN (13:49)
[2022-08-21] MEDS: cefTRIAXone\\ROCEPHIN 2 GM in Sodium Chloride 0.9% 100 ML IVPB SCH (15:07)
[2022-08-21] MEDS: Atorvastatin Calcium 40 MG TAB PO SCH (20:34)
[2022-08-21] MEDS: Cyclobenzaprine 10 MG TAB PO PRN (20:34)
[2022-08-22] MEDS: HYDROcodone/Acetaminophen 5/325 mg Tablet PO PRN ×5 (01:22→20:50)
[2022-08-22] MEDS: Pregabalin 50 MG CAP PO SCH ×2 (08:18→19:41)
[2022-08-22] MEDS: DULoxetine 30 MG CAP PO SCH ×2 (08:19→19:41)
[2022-08-22] MEDS: cefTRIAXone\\ROCEPHIN 2 GM in Sodium Chloride 0.9% 100 ML IVPB SCH (15:53)
[2022-08-22] MEDS: Cyclobenzaprine 10 MG TAB PO PRN (19:41)
[2022-08-22] MEDS: Atorvastatin Calcium 40 MG TAB PO SCH (19:41)
[2022-08-23] MEDS: HYDROcodone/Acetaminophen 5/325 mg Tablet PO PRN ×4 (01:41→14:22)
[2022-08-23] MEDS: Pregabalin 50 MG CAP PO SCH (08:37)
[2022-08-23] MEDS: DULoxetine 30 MG CAP PO SCH (08:38)
[2022-08-23] MEDS: cefTRIAXone\\ROCEPHIN 2 GM in Sodium Chloride 0.9% 100 ML IVPB SCH (14:23)
[2022-08-23 16:37] VITALS: BP 130/85; TEMP 98.6
== END 2022-08-23 17:39 | disposition home or self-care (01) | DRG 153 ==
LOC: ERS 11:15 → T4-A 15:43 → OBSVTOIN 15:43
PROVIDERS: ADMIT Family Medicine; ATTEND Hospitalist
PROC: 0CJS8ZZ Inspection of Larynx, Via Natural or Artificial Opening Endoscopic (ICD-10-PCS; principal; 2022-08-16)
PROC: 02HV33Z Insertion of Infusion Device into Superior Vena Cava, Percutaneous Approach (ICD-10-PCS; 2022-08-22)
PROC: B5181ZA Fluoroscopy of Superior Vena Cava using Low Osmolar Contrast, Guidance (ICD-10-PCS; 2022-08-22)
PROC: B548ZZA Ultrasonography of Superior Vena Cava, Guidance (ICD-10-PCS; 2022-08-22)
DX: J39.0 Retropharyngeal and parapharyngeal abscess (principal); I10 Essential (primary) hypertension; E78.5 Hyperlipidemia, unspecified; I25.10 Atherosclerotic heart disease of native coronary artery without angina pectoris; B19.20 Unspecified viral hepatitis C without hepatic coma; F17.210 Nicotine dependence, cigarettes, uncomplicated; F32.A Depression, unspecified; B95.61 Methicillin susceptible Staphylococcus aureus infection as the cause of diseases classified elsewhere; Z98.890 Other specified postprocedural states; Z95.1 Presence of aortocoronary bypass graft; Z79.899 Other long term (current) drug therapy; Z79.82 Long term (current) use of aspirin; Z71.6 Tobacco abuse counseling; Z20.822 Contact with and (suspected) exposure to COVID-19
CPT/HCPCS: 36415; 36416; 36569; 70491; 70498; 72156; 80048; 80053; 80202; 84484; 85025; 87040; 87070; 87076; 87077; 87186; 87205; 87811; 93005; 94640; 94760; 96365; 96375; A9579; C1751; J0171; J0696; J1100; J1580; J1650; J1885; J2001; J2060; J2250; J2270; J2272; J2405; J2543; J2704; J3010; J3370; J3490; J7050; Q9967; U0003; U0005

== ENCOUNTER 2023-08-09 11:03 | Day surgery (SDC) | payer OTHER ==
[2023-08-08 14:02] VITALS: BMI 23.0
[2023-08-09 12:08] LABS: Hematocrit 51.8 % (42.0-52.0); Hemoglobin 17.1 g/dL (14.0-18.0); Mean Corpuscular Hemoglobin 31.1 pg (27.0-31.0); Mean Corpuscular Volume 94.4 fl (78.0-98.0); Mean Platelet Volume 9.5 fL (7.4-10.4); Platelet Count 278 10x3/uL (130-400); RBC Distribution Width 12.3 % (11.5-14.5); Red Blood Cell (RBC) Count 5.49 mill/uL (4.70-6.10); White Blood Cell (WBC) Count 7.7 10x3/uL (4.8-10.8)
[2023-08-09 12:51] LABS: Anion Gap 12 mmol/L (10-20); BUN (Urea Nitrogen) 31 mg/dL (8.4-25.7); Calc. Creatinine Clearance 73 mL/min (70-130); Calcium 9.2 mg/dL (7.8-10.44); Carbon Dioxide 19 mmol/L (22-29); Chloride 109 mmol/L (98-107); Estimated GFR 69; Glucose 90 mg/dL (70-105); Potassium 4.6 mmol/L (3.5-5.1); Sodium 135 mmol/L (136-145)
[2023-08-09] MEDS ORDERED: Bacitracin Zinc Ointment 30 gm TUBE ONE (13:19)
[2023-08-09] MEDS ORDERED: Bupivacaine 0.25% HCL 30 ML VIAL ONE (13:19)
[2023-08-09] MEDS ORDERED: Lidocaine 1% (PF) 30 ML VIAL ONE (13:20)
[2023-08-09] MEDS ORDERED: fentaNYL PF 100 MCG/2 ML SYRINGE ONE (13:29)
[2023-08-09] MEDS ORDERED: PROPOFOL 20 ML ONE ×2 (13:30)
[2023-08-09] MEDS ORDERED: Sodium Chloride 0.9% 100 ML ONE (13:33)
[2023-08-09] MEDS ORDERED: CEFAZOLIN 2 GM VIAL ONE (13:33)
[2023-08-09] MEDS ORDERED: Ondansetron PF 4 MG/2 ML Vial ONE (13:54)
[2023-08-09] MEDS ORDERED: Dexamethasone 4 mg/ml Vial ONE (13:54)
== END 2023-08-09 15:38 | disposition home or self-care (01) ==
LOC: SDC 11:03
PROVIDERS: ATTEND Surgery Surgery of the Hand
PROC: 0KBD0ZZ Excision of Left Hand Muscle, Open Approach (ICD-10-PCS; principal; 2023-08-09)
DX: S61.211A Laceration without foreign body of left index finger without damage to nail, initial encounter (principal); L08.9 Local infection of the skin and subcutaneous tissue, unspecified; Z79.02 Long term (current) use of antithrombotics/antiplatelets; Z79.899 Other long term (current) drug therapy; X58.XXXA Exposure to other specified factors, initial encounter
CPT/HCPCS: 36415; 80048; 85027; 87070; 87102; 87116; 87205; 87206; 93005; 93010; J0665; J1100; J2001; J2405; J2704; J3490

== ENCOUNTER 2023-11-23 14:16 | Outpatient (CLI) | payer OTHER ==
[2023-11-23 14:53] LABS: Hematocrit 47.1 % (38.8-50.0); Hemoglobin 16.4 g/dL (13.5-17.5); Mean Corpuscular HGB CONC 34.8 g/dL (32.0-36.0); Mean Corpuscular Hemoglobin 32.7 pg (27.0-33.0); Mean Platelet Volume 9.5 fl (7.4-10.4); Platelet Count 259 10x3/uL (150-450); Red Blood Cell (RBC) Count 5.01 10x6/uL (4.32-5.72); White Blood Cell (WBC) Count 8.3 10x3/uL (3.5-10.5)
[2023-11-23 15:14] LABS: Anion Gap 14 mmol/L (10-20); BUN (Urea Nitrogen) 16 mg/dL (8.4-25.7); Calc. Creatinine Clearance 0 mL/min (70-130); Calcium 9.1 mg/dL (7.8-10.44); Carbon Dioxide 23 mmol/L (22-29); Chloride 106 mmol/L (98-107); Estimated GFR 61; Glucose 92 mg/dL (70-105); Potassium 4.6 mmol/L (3.5-5.1); Sodium 138 mmol/L (136-145)
== END 2023-11-23 14:17 | disposition home or self-care (01) ==
LOC: LABBT 14:16
PROVIDERS: ATTEND Thoracic Surgery (Cardiothoracic Vascular Surgery)
DX: Z01.818 Encounter for other preprocedural examination (principal); I73.9 Peripheral vascular disease, unspecified
CPT/HCPCS: 80048; 85027; 93005; 93010

== ENCOUNTER 2023-11-28 05:44 | Day surgery (SDC) | payer OTHER ==
[2023-11-23 14:36] VITALS: BMI 22.3
[2023-11-28] MEDS ORDERED: Heparin 10,000 UNITS/ 10 ML VIAL ONE (06:19)
[2023-11-28] MEDS ORDERED: Midazolam HCl 2 mg/2 ml Vial ONE (06:57)
[2023-11-28] MEDS ORDERED: fentaNYL 50 mcg/mL 1 mL Vial ONE (06:57)
[2023-11-28] MEDS ORDERED: Iopamidol 370 76% 100 ML VIAL ONE (11:04)
== END 2023-11-28 10:15 | disposition home or self-care (01) ==
LOC: SDC 05:44
PROVIDERS: ATTEND Thoracic Surgery (Cardiothoracic Vascular Surgery)
PROC: B300ZZZ Plain Radiography of Thoracic Aorta (ICD-10-PCS; principal; 2023-11-28)
PROC: B2000ZZ Plain Radiography of Single Coronary Artery using High Osmolar Contrast (ICD-10-PCS; principal; 2023-11-28)
PROC: B20 Imaging, Heart, Plain Radiography (ICD-10-PCS; principal; 2023-11-28)
DX: I73.9 Peripheral vascular disease, unspecified (principal); B19.20 Unspecified viral hepatitis C without hepatic coma; J44.9 Chronic obstructive pulmonary disease, unspecified; I25.10 Atherosclerotic heart disease of native coronary artery without angina pectoris; I10 Essential (primary) hypertension; F32.A Depression, unspecified; E78.5 Hyperlipidemia, unspecified; F12.10 Cannabis abuse, uncomplicated; Z79.899 Other long term (current) drug therapy; Z79.02 Long term (current) use of antithrombotics/antiplatelets; F17.200 Nicotine dependence, unspecified, uncomplicated
CPT/HCPCS: 36246; 37224; 75625; 75710; 75774; 85347; C1725; C1760; C1769; C1887; C1894; C2623; J1644; J2250; J3010; Q9967

== ENCOUNTER 2024-01-16 05:57 | Day surgery (SDC) | payer OTHER ==
[2024-01-15 12:24] VITALS: BMI 26.3
[2024-01-16] MEDS ORDERED: Heparin 10,000 UNITS/ 10 ML VIAL ONE (06:25)
[2024-01-16] MEDS ORDERED: hydrALAZINE 20 MG/ML VIAL ONE (07:02)
[2024-01-16] MEDS ORDERED: fentaNYL 50 mcg/mL 1 mL Vial ONE (07:38)
== END 2024-01-16 11:07 | disposition home or self-care (01) ==
LOC: SDC 05:57
PROVIDERS: ATTEND Thoracic Surgery (Cardiothoracic Vascular Surgery)
PROC: 04FK3ZZ Fragmentation of Right Femoral Artery, Percutaneous Approach (ICD-10-PCS; principal; 2024-01-16)
DX: I73.9 Peripheral vascular disease, unspecified (principal); J44.9 Chronic obstructive pulmonary disease, unspecified; I10 Essential (primary) hypertension; F32.A Depression, unspecified; E78.5 Hyperlipidemia, unspecified; F12.10 Cannabis abuse, uncomplicated; I25.10 Atherosclerotic heart disease of native coronary artery without angina pectoris; Z79.899 Other long term (current) drug therapy; Z79.02 Long term (current) use of antithrombotics/antiplatelets
CPT/HCPCS: 36247; 37226; 85347; C1725; C1760; C1769; C1876; C1887; C1894; J0360; J1644; J3010

== ENCOUNTER 2024-03-17 18:11 | Emergency (ER) | payer OTHER ==
[2024-03-17] MEDS ORDERED: Lorazepam 2 MG/ML VIAL ONE (18:49)
[2024-03-17] MEDS ORDERED: Multivitamins, Adult 10 ML, Thiamine HCl 100 MG, Folic Acid 1 MG in Dextrose 5 %-0.45 %... IV SCH (19:15)
[2024-03-17 19:34] LABS: #Basophils 0.07 10x3/uL (0.0-0.2); %Basophils 0.9 % (0.0-1.0); %Eosinophils 3.3 % (0.0-10.0); %Lymphocytes 41.2 % (21.0-51.0); %Monocytes 6.7 % (0.0-10.0); %Neutrophils 47.6 % (42.0-75.0); Hematocrit 42.5 % (42.0-52.0); Hemoglobin 14.6 g/dL (14.0-18.0); Mean Corpuscular HGB CONC 34.4 g/dL (32.0-36.0); Mean Corpuscular Hemoglobin 32.4 pg (27.0-31.0); Mean Corpuscular Volume 94.2 fL (78.0-98.0); Mean Platelet Volume 9.6 fL (7.4-10.4); Platelet Count 233 10x3/uL (130-400); RBC Distribution Width 12.8 % (11.5-14.5); Red Blood Cell (RBC) Count 4.51 mill/uL (4.70-6.10)
[2024-03-17 19:48] LABS: Lipase 81 U/L (8-78); Magnesium 1.8 mg/dL (1.6-2.6)
[2024-03-17 19:49] LABS: Acetaminophen Less than 10 mcg/mL (Less than 10); Alcohol 85.8 mg/dL (Less than 10); Salicylate Less than 8.0 mg/dL (Less than 8.0)
[2024-03-17 19:50] LABS: ALT (SGPT) 15 U/L (8-55); AST (SGOT) 18 U/L (5-34); Albumin 3.9 g/dL (3.5-5.0); Alkaline Phosphatase 62 U/L (40-110); Anion Gap 16 mmol/L (10-20); BUN (Urea Nitrogen) 17 mg/dL (8.4-25.7); Bilirubin, Total 0.4 mg/dL (0.2-1.2); Calc. Creatinine Clearance 0 mL/min (70-130); Calcium 9.1 mg/dL (7.8-10.44); Carbon Dioxide 19 mmol/L (22-29); Chloride 107 mmol/L (98-107); Estimated GFR 51; Globulin 3.1 g/dL (2.4-3.5); Glucose 80 mg/dL (70-105); Potassium 4.6 mmol/L (3.5-5.1); Sodium 137 mmol/L (136-145)
== END 2024-03-17 21:34 | disposition home or self-care (01) ==
LOC: ERS 18:11
DX: R25.1 Tremor, unspecified (principal); I10 Essential (primary) hypertension; I25.10 Atherosclerotic heart disease of native coronary artery without angina pectoris; F17.210 Nicotine dependence, cigarettes, uncomplicated; J44.9 Chronic obstructive pulmonary disease, unspecified; Z79.899 Other long term (current) drug therapy
CPT/HCPCS: 80053; 80307; 83690; 83735; 84443; 85025; 93005; 96374; 96375; J2060; J3411; J7042

== ENCOUNTER 2024-06-13 11:52 | Outpatient (CLI) | payer OTHER ==
[2024-06-13 12:59] LABS: #Basophils 0.08 10x3/uL (0.0-0.2); %Basophils 1.1 % (0.0-1.0); %Eosinophils 5.4 % (0.0-10.0); %Lymphocytes 29.1 % (21.0-51.0); %Monocytes 5.5 % (0.0-10.0); %Neutrophils 58.5 % (42.0-75.0); Hemoglobin 14.6 g/dL (14.0-18.0); Mean Corpuscular Hemoglobin 32.4 pg (27.0-31.0); Mean Corpuscular Volume 95.6 fL (78.0-98.0); Mean Platelet Volume 9.9 fL (7.4-10.4); Platelet Count 252 10x3/uL (130-400); RBC Distribution Width 12.5 % (11.5-14.5)
[2024-06-13 13:14] LABS: Anion Gap 12 mmol/L (10-20); BUN (Urea Nitrogen) 14 mg/dL (8.4-25.7); Calc. Creatinine Clearance 0 mL/min (70-130); Calcium 9.2 mg/dL (7.8-10.44); Carbon Dioxide 25 mmol/L (22-29); Chloride 108 mmol/L (98-107); Estimated GFR 65; Glucose 95 mg/dL (70-105); Potassium 4.9 mmol/L (3.5-5.1); Sodium 140 mmol/L (136-145)
== END 2024-06-13 11:53 | disposition home or self-care (01) ==
LOC: LABBT 11:52
PROVIDERS: ATTEND Thoracic Surgery (Cardiothoracic Vascular Surgery)
DX: Z01.812 Encounter for preprocedural laboratory examination (principal); I73.9 Peripheral vascular disease, unspecified
CPT/HCPCS: 80048; 85025